=== PATIENT | male | born 1940 | race Caucasian/White ===

== ENCOUNTER 2022-07-25 08:36 | Outpatient (CLI) | payer MEDICARE, BC, SELFPAY ==
[2022-07-25 11:03] LABS: Alanine Aminotransferase* 15 U/L (4-50); Albumin* 4.7 g/dL (3.3-5.0); Alkaline Phosphatase* 80 U/L (40-150); Aspartate Amino Transferase* 22 U/L (12-35); Bilirubin Total* 0.9 mg/dL (0.1-1.5); Blood Urea Nitrogen* 27 mg/dL (7-30); Calcium* 9.9 mg/dL (8.4-10.6); Carbon Dioxide* 30 mmol/L (20-32); Chloride* 102 mmol/L (96-114); Cholesterol* 223 mg/dL (90-199); Creatinine* 1.4 mg/dL (0.5-1.5); Estimated Glomerular Filt Rate 50 ml/min; Glucose* 86 mg/dL (60-115); HDL Cholesterol* 63 mg/dL (>=40); LDL Cholesterol Calculated 146 mg/dL (<100); PSA Screen* 1.57 ng/mL (0.10-4.00); Potassium* 4.6 mmol/L (3.6-5.1); Sodium* 140 mmol/L (135-149); Total Protein* 6.9 g/dL (6.0-8.3); Triglycerides* 69 mg/dL (40-149)
== END 2022-07-25 08:37 | disposition home or self-care (01) ==
PROVIDERS: PCP Internal Medicine; Visit Provider Internal Medicine
DX: Z00.00 Encounter for general adult medical examination without abnormal findings (principal); I10 Essential (primary) hypertension; Z12.5 Encounter for screening for malignant neoplasm of prostate; Z13.6 Encounter for screening for cardiovascular disorders
CPT/HCPCS: 80053; 80061; 84153

== ENCOUNTER 2022-12-05 07:40 | Outpatient (CLI) | payer MEDICARE, BC, SELFPAY ==
--- NOTE | 2022-12-05 08:00 | CRLHL7_ITS ---
For Patients: As a result of the Century Cures Act, medical imaging exams and procedure reports are released immediately into your electronic medical record. You may view this report before your referring provider. If you have questions, please contact your health care provider. INDICATION: Hilar mass, further evaluation with CT recommended TECHNIQUE: CT chest was acquired with IV contrast. 75 cc of Isovue 370 contrast was administered intravenously. COMPARISON: Chest x-ray 11/07/2022 FINDINGS: The heart is normal in size. Mild atherosclerotic calcification of the coronary arteries. There is a mildly prominent sub-carinal lymph node measuring 1.7 x 1.1 cm. AP left precarinal lymph node measures 1.2 x 0.9 cm. No hilar adenopathy. No axillary adenopathy. There is a occlusion of the left lingular bronchus with postobstructive atelectasis/consolidation of the lingula. Most likely secondary to obstructing mass, however is difficult to visualize given the consolidation/atelectasis, however possibly measuring approximately 1.8 cm. Remainder of the lungs are clear. No other suspicious pulmonary mass or nodule. Negative for pleural effusion. Minimal dependent atelectasis on the right. The upper abdomen is unremarkable. No suspicious bone lesion. IMPRESSION: 1. Occlusion of the left lingular bronchus with postobstructive atelectasis/consolidation of the left lingula. Most likely due to obstructing malignant mass. Recommend pulmonary consultation. 2. Mildly prominent mediastinal lymph nodes. Dictated by Rosa Anderson MD @ 12/09/2022 8:30:19 AM Please note that all CT scans at this facility use dose modulation, iterative reconstruction, and/or weight-based dosing when appropriate to reduce radiation dose to as low as reasonably achievable. Dictated by: Rosa Anderson MD @ 12/09/2022 08:31:32 (Electronically Signed)
[2022-12-05 08:14] LABS: Creatinine* 1.2 mg/dL (0.5-1.5); Estimated Glomerular Filt Rate 60 ml/min
== END 2022-12-05 07:41 | disposition home or self-care (01) ==
LOC: CT 07:42
PROVIDERS: PCP Internal Medicine; Visit Provider Internal Medicine
DX: R91.8 Other nonspecific abnormal finding of lung field (principal)
CPT/HCPCS: 36415; 71260; 82565; Q9967

== ENCOUNTER 2023-07-29 08:27 | Outpatient (CLI) | payer MEDICARE, BC, SELFPAY | END 2023-07-29 08:28 | disposition home or self-care (01) | PROVIDERS: PCP Internal Medicine; Visit Provider Internal Medicine | DX: I10 Essential (primary) hypertension (principal); Z13.6 Encounter for screening for cardiovascular disorders; Z12.5 Encounter for screening for malignant neoplasm of prostate | CPT/HCPCS: 80053; 80061; 84153 ==

== ENCOUNTER 2024-01-10 07:03 | Outpatient (CLI) | payer MEDICARE, BC, SELFPAY ==
--- OUTSIDE RECORDS SUMMARY | 2024-01-10 07:06 | XMS_ITS | Clinical Summary ---
Author Name Unknown Organization [facility] Address [address] [place] [address] Care Team Providers Care Shoemaker Apprentice Name Role Phone Unavailable Primary Care Provider Unavailabl e Source Comments Patient records contain information from all sites at [facility]. For routine questions regarding patient records, call [phone] during business hours, M-F 8:00 AM - 5:00 PM Central Time. Record requests for emergency care only can be directed to [phone] at any time.[facility] Allergies Active Allergy Reactions Criticality Noted Date Comments Bleomycin Other (see comments) 06/18/2005 Medications Medication Sig Dispensed Refills Start Date End Date Status atenoloL (TENORMIN) 25 mg tablet Take 0.5 tablets by mouth every evening. 12/06/2011 Active famotidine (PEPCID) 20 mg tablet Take 1 tablet by mouth daily. 03/01/2009 Active lisinopriL (PRINIVIL,ZESTRIL) 40 mg tablet Take 1 tablet by mouth every morning. 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 Overview: Endobronchial Immunizations Name Administration Dates Next Due Influenza (IM) Preservative Free 013,07/11/2012,07/10/2011,2009 Influenza high dose QV(65 ye ars or older) (PF) 07/10/2022,07/20/2021,07/07/2020 Influenza, Seasonal, Injectable 07/13/20 08,08/07/2006,08/02/2005,2003,07/09/2003 Influenza, Unspecified 08/22/2009 PCV13 06/07/2015 PPSV23(Discontinued) 07/25/2001 Tdap 07/25/2022,07/11/2012 influenza high dose (65 year s or older) (PF) 07/01/2019,07/30/2018,07/24/2017,2013 influenza vaccine quad (FLUZONE/FLUARIX) (6 months and older)(PF) 07/05/2016,07/19/2015 Social History Tobacco Use Types Packs/Day Years Used Date Smoking Tobacco: Former Cigarettes 1 30 1 95 - 1981 Smokeless Tobacco: Never Tobacco Cessation:Counseling Given: Not Answered Nutrition Answer Date Recorded Nutrition: EVOO Fat Source Unknown 12/11 Nutrition: Servings of Fruits/Vegetables per Day Not on file 12/11/2022 Dental Answer Date Recorded Dental: Regular Dentist Unknown 12/12/19 23 Sex and Gender Information Value Date Recorded Sex Assigned at Not on file Gender Identity Not on file Sexual Orientation Not on file Last Filed Vital Signs Vital Sign Reading Time Taken Comments Blood Pressure 194/72 01/21/2023 10:52 AM CDT Pulse 57 01/21/2023 10:52 AM CDT Temperature 36.3 ??C (97.4 ??F) 01/21/2023 1 0:52 AM CDT Respiratory Rate 20 12/08/2011 8:15 AM CDT Oxygen Saturation 98% 01/21/2023 10: 52 AM CDT Inhaled Oxygen Concentration - - Weight 78.8 kg (173 lb 11.6 oz) 023 10:52 AM CDT Height 170.4 cm (5' 7.09) 01/21/2023 1 0:52 AM CDT Body Mass Index 27.14 01/21/2023 10:52 AM CDT Plan of Treatment Health Maintenance Due Date Last Done Comments Sodium Level 1940 Potassium Level 12/05/2012 12/06/2011 Pneumococcal vaccine (65+ years) (3 of 3 - PPSV23 or PCV20) 08/02/2015 06/07/2015, 07/25/2001 Zoster Vaccines (2 of 2) 03/04/2023 01/07/2023 Depression Screening (Annual PHQ-2) 09/23/2023 Fall Risk Screen (Annual) 09/23/2023 Creatinine Level (Kidney Function Test) 01/22/2024 01/21/2023, 12/06/2011 DTaP,Tdap,and Td Vaccines (3 - Td or Tdap) 07/25/2032 07/25/2022, 07/11/2012 COVID-19 Vaccine Completed 07/17/2023, , 08/01/2021, Additional history exists Influenza Vaccine Completed 07/17/2023, , 07/20/2021, Additional history exists HPV Vaccines Aged Out No longer eligi ble based on patient's age to complete this topic Medical Devices Implanted Type Area Registered Medical Assistant Device Identifier Shelf Expiration Date Model / Serial / Lot Stent Percuflex 6 X 26 - Pak [id number] Implanted:Qty: 1 on 03/01/2009 Ureteral Stent [employer] Description:Device Manufactu rer - [employer]. Device Status Text - [id number]-1070. Stent Percuflex 7 X 26 - Pak [id number] Implanted:Qty: 1 on 03/11/2009 Ureteral Stent [employer] Description:Device Manufactu rer - [employer]. Device Status Text - [id number]-1072. Stent Percuflex 7 X 24 - Pak [id number] Implanted:Qty: 1 on 04/06/2009 Ureteral Stent [employer] Description:Device Manufactu rer - [employer]. Device Status Text - [id number]-1071. Procedures Procedure Name Priority Date/Time Associated Diagnosis Comments CREATININE, POCT, B Routine 01/21/2023 7 :12 AM CDT POTASSIUM, S/P Routine 12/06/2011 1:44 PM CDT from Last 3 Months or Most Recently Relevant to Health Maintenance Results * (ABNORMAL) Creatinine, POCT (01/21/2023 7:12 AM CDT) Creatinine, POCT, B 1.5(H) 0.7 - 1.4 mg/dL 01/21/2023 7:14 AM CDT PCDT Comment: ----ADDITIONAL INFORMATION---- Performed at the Point of Care Blood 01/21/2023 7:12 AM CDT 01/21/2023 7:14 AM CDT Unknown Provider LAB POCT ORDERABLES - DEVICE Performing Organization Address [facility]/ZIP Co de Phone Number [facility] PER[facility] [address] [place] [address], [facility] PCDT [facility] POC [address] [place] [address] * Potassium (12/06/2011 1:44 PM CDT) Potassium, S 4.7 3.6 - 5.2 MMOL/L [facility] 12/06/2011 1:44 PM CDT 12/06/2011 1:44 PM CDT Bam Richardson M.D. LAB BLOOD ADD-ON Performing Organization Address City/[facility]/ZIP Co de Phone Number [facility] [address] [place] [address], [facility] from Last 3 Months or Most Recently Relevant to Health Maintenance
--- OUTSIDE RECORDS SUMMARY | 2024-01-10 07:06 | XMS_ITS | Referral Summary ---
Author Name Unknown Organization [facility] Address [address] [place] [address] Care Team Providers Care Labor Contract Analyst Name Role Phone Unavailable Primary Care Provider Unavailabl e Source Comments Patient records contain information from all sites at [facility]. For routine questions regarding patient records, call [phone] during business hours, M-F 8:00 AM - 5:00 PM Central Time. Record requests for emergency care only can be directed to [phone] at any time.[facility] Allergies Active Allergy Reactions Criticality Noted Date [...] Smoking Tobacco: Former Cigarettes 1 30 1 24 - 1981 Smokeless Tobacco: Never Tobacco Cessation:Counseling [...] 01/21/2023 10:52 AM CDT Plan of Treatment Not on file Medical Devices Implanted Type Area Automobile Travel Club Counselor Device Identifier Shelf Expiration Date Model / Serial / Lot Stent Percuflex 6 X 26 - Pak [id number] Implanted:Qty: 1 on 03/01/2009 Ureteral Stent [employer] Description:Device Manufactu rer - [employer]. Device Status Text - [id number]-1070. Stent Percuflex 7 X 26 - Pak [id number] Implanted:Qty: 1 on 03/11/2009 Ureteral Stent [employer] Description:Device Manufactu rer - [employer]. Device Status Text - [id number]-1072. Stent Percuflex 7 X 24 - Pak [id number] Implanted:Qty: 1 on 04/06/2009 Ureteral Stent [employer] Description:Device Manufactu rer - [employer]. Device Status Text - [id number]-1071. Procedures [...] POCT ORDERABLES - DEVICE Performing Organization Address City/[facility]/ZIP Co de Phone Number [facility] PERFORMING LABS [address] [place] [address], [facility] PCDT [facility] POC [address] [place] [address] * Potassium (12/06/2011 1:44 PM CDT) Potassium, S 4.7 3.6 - 5.2 MMOL/L [facility] 12/06/2011 1:44 PM CDT 12/06/2011 1:44 PM CDT Bam Richardson M.D. LAB BLOOD ADD-ON Performing Organization Address City/[facility]/ZIP Co de Phone Number [facility] [address] [place] [address], [facility] from Last 3 Months or Most Recently Relevant to Health Maintenance
--- OUTSIDE RECORDS SUMMARY | 2024-01-10 07:06 | XMS_ITS ---
Author Name Unknown Organization [facility] Address [address] [place] [address] Care Team Providers Care Retail Cosmetics Sales Counter Manager Name Role Phone Unavailable Unavailable Unavailable Surgery Details Not on file Complications Check Surgery Details section. Procedure Estimated Blood Loss Check Surgery Details section. Procedure Findings Check Surgery Details section. Procedure Specimens Taken Check Surgery Details section.
--- NOTE | 2024-01-10 07:15 | MR_ITS ---
[facility] [address] [facility] [address] Phone:?[phone] Fax:?[phone] Referring Physician Information: Jose Alvarado M.D. [address] [place] [address] Phone:?[phone] Fax:?[phone] Patient:?Kody Garcia D.O.B:?1940 Sex:?Male Phone:?[phone] [facility] MRN:?[id number] Exam Date:?01/10/2024 EXAM: MRI EXAMINATION OF THE RIGHT SHOULDER CLINICAL INFORMATION: Right shoulder pain. No history of surgery to this area. Possible rotator cuff tear. TECHNICAL INFORMATION: Coronal STIR as well as axial, sagittal and coronal PD and T2-weighted images acquired. No prior studies for comparison. INTERPRETATION: Bones: There is no Hill-Sachs impaction deformity. No other occult fracture or osseous contusion. No other bone marrow edema pattern. Rotator Cuff: Series 8 images 4 through 6 demonstrate a 1.3 cm AP full-thickness tear involving the mid to anterior fibers of the supraspinatus tendon insertion. Torn tendon fibers remain situated lateral to the mid humeral head level. There is no evidence for muscle belly atrophy. The infraspinatus and teres minor tendons appear normally intact. There is a 1 cm craniocaudal segment of moderate to high-grade deep fiber partial tear superior to the mid subscapularis tendon. The bony coracohumeral interval is measuring 5 mm. There is a moderate appearance of subcoracoid bursitis. Mild subscapularis muscle belly atrophy. Coracoacromial arch: There is no discrete subacromial osseous spur. The bony acromiohumeral interval is measuring 5 to 6 mm.. There is no abnormal underlying thickening identified of the coracoacromial ligament. Acromioclavicular joint: There is a mild appearance of AC joint DJD with resultant mild underlying supraspinatus deformity. Biceps tendon: There is rupture of the intra-articular long head biceps tendon. Soft tissue inflammatory changes along the bicipital groove, and this may be more acute or subacute. Glenohumeral joint and labrum: No significant glenohumeral joint effusion. No discrete loose body within the joint. Osteochondral surfaces appear relatively preserved. Mild tearing and fraying involves the superior labrum. No other definite evidence for labral tear. No discrete paralabral cyst is identified. CONCLUSION: 1. There is a moderate-sized full-thickness tear involving the anterior supraspinatus tendon insertion. Torn tendon fibers remain situated lateral to the mid humeral head level. No muscle belly atrophy. 2. There is a small to moderate-sized segment of moderate to high-grade deep fiber partial tear superior to the mid subscapularis tendon. Mild muscle belly atrophy. 3. Mild to moderate narrowing of the coracohumeral interval. Moderate subcoracoid bursitis. 4. Mild AC joint DJD with mild to moderate narrowing of acromiohumeral interval. 5. Ruptured intra-articular long biceps tendon, may be more acute or subacute. 5. No appreciable glenohumeral chondromalacia. Mild tearing and fraying involves the superior labrum. KES Electronically signed on 01/10/2024 11:28:00 AM by Hans Gonzalez M.D.
== END 2024-01-10 07:04 | disposition home or self-care (01) ==
LOC: MRI 07:04
PROVIDERS: PCP Internal Medicine; Visit Provider Orthopaedic Surgery
DX: M25.511 Pain in right shoulder (principal); M75.101 Unspecified rotator cuff tear or rupture of right shoulder, not specified as traumatic; M75.51 Bursitis of right shoulder; M19.011 Primary osteoarthritis, right shoulder
CPT/HCPCS: 73221

== ENCOUNTER 2024-08-03 07:45 | Outpatient (CLI) | payer MEDICARE, BC, SELFPAY ==
--- OUTSIDE RECORDS SUMMARY | 2024-08-05 19:39 | XMS_ITS ---
Author Organization [facility] Address [address] [place] [address] Care Team Providers Care Endocrinology Nurse Name Role Phone Unavailable Unavailable Unavailable Surgery Details Not on file Complications Check Surgery Details section. Procedure Estimated Blood Loss Check Surgery Details section. Procedure Findings Check Surgery Details section. Procedure Specimens Taken Check Surgery Details section.
--- OUTSIDE RECORDS SUMMARY | 2024-08-05 19:39 | XMS_ITS | Referral Summary ---
Author Organization [facility] Address [address] [place] [address] Care Team Providers Care Model Builder Display Name Role Phone Unavailable Primary Care Provider Unavailabl e Source Comments Patient records contain information from all sites at [facility]. For routine questions regarding patient records, call [phone] during business hours, M-F 8:00 AM - 5:00 PM Central Time. Record requests for emergency care only can be directed to [phone] at any time.[facility] Allergies Active Allergy Reactions Criticality Noted Date Comments Bleomycin Other (see comments) 06/18/2005 Medications atenoloL (TENORMIN) 25 mg tablet Take 0.5 tablets by mouth every evening. 12/06/2011 Active famotidine (PEPCID) 20 mg tablet Take 1 tablet by mouth daily. 03/01/2009 Active lisinopriL (PRINIVIL,ZESTR [place]) 40 mg tablet Take 1 tablet by mouth every morning. 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 Overview (01/16/2023): Endobronchial Immunizations Name Administration Dates Next Due Influenza high dose QV(65 ye ars or older) (PF) 07/10/2022,07/20/2021,07/07/2020 Influenza, Seasonal, Injectable 07/13/20 08,08/07/2006,08/02/2005,2003,07/09/2003 Influenza, Unspecified 08/22/2009 PCV13 06/07/2015 PPSV23 07/25/2001 Tdap 07/25/2022,07/11/2012 influenza trivalent high dos e (HD)(PF) 07/01/2019,07/30/2018,07/24/2017,2013 influenza trivalent vaccine (6 months and older)(PF) 06/30/2013,07/11/2012,07/10/2011,2009 influenza vaccine quad (FLUZONE/FLUARIX) (6 months and older)(PF) 07/05/2016,07/19/2015 Social History Tobacco Use Types Packs/Day Years Used Date Smoking Tobacco: Former Cigarettes 1 30 1 1981 Smokeless Tobacco: Never Tobacco Cessation:Counseling Given: Not Answered Dental Answer Date Recorded Dental: Regular Dentist Unknown 12/12/19 23 Sex and Gender Information Value Date Recorded Sex Assigned at Not on file Legal Sex 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 Device Status Text - UROLOGY-1070. Stent Percuflex 7 X 26 - Pak [id number] Implanted:Qty: 1 on 03/11/2009 Ureteral Stent [employer] Description:Device Manufactu rer - [employer]. Device Status Text - UROLOGY-1072. Stent Percuflex 7 X 24 - Pak [id number] Implanted:Qty: 1 on 04/06/2009 Ureteral Stent [employer] Description:Device Manufactu rer - [employer]. Device Status Text - [id number]-1071. Procedures [...] 7:12 AM CDT 01/21/2023 7:14 AM CDT us Unknown Provider LAB POCT ORDERABLES - DEVICE Fi nal Result [facility] PERFORMING LABS [address] PCDT [facility] POC [address] [place] [address] * Potassium (12/06/2011 1:44 PM CDT) Potassium, S 4.7 3.6 - 5.2 MMOL/L [facility] 12/06/2011 1:44 PM CDT 12/06/2011 1:44 PM CDT Bam Richardson M.D. LAB BLOOD ADD-ON Final Result [facility] [address] [place] [address], [facility] from Last 3 Months or Most Recently Relevant to Health Maintenance Insurance [facility]
--- OUTSIDE RECORDS SUMMARY | 2024-08-05 19:39 | XMS_ITS | Clinical Summary ---
Author Organization [facility] Address [address] [place] [address] Care Team Providers Care Lace Inspector Name Role Phone Unavailable Primary Care Provider Unavailabl e Source Comments Patient records contain information from all sites at [facility]. For routine questions regarding patient records, call [phone] during business hours, M-F 8:00 AM - 5:00 PM Central Time. 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 Gender Identity Not on file Sexual Orientation [...] Sodium Level 1940 Potassium Level 12/05/2012 12/06/2011 RSV vaccine - (32-36 weeks) or 60+ years (1 - 1-dose 75+ series) 2014 Pneumococcal vaccine (65+ years) (3 of 3 - PPSV23 or PCV20) 08/02/2015 06/07/2015, 07/25/2001 Zoster Vaccines (2 of 2) 03/04/2023 01/07/2023 Depression Screening (Annual PHQ-2) 09/23/2023 Fall Risk Screen (Annual) 09/23/2023 Creatinine Level (Kidney Function Test) 01/22/2024 01/21/2023, 12/06/2011 COVID-19 Vaccine ( season) 2024 07/17/2023, 07/10/2022, 08/01/2021, Additional history exists Influenza Vaccine (#1) 2024 , 07/10/2022, 07/20/2021, Additional history exists DTaP,Tdap,and Td Vaccines (3 - Td or Tdap) 07/25/2032 07/25/2022, 07/11/2012 HPV Vaccines Aged Out No longer eligi ble based on patient's age to complete this topic IPV Vaccines Aged Out No longer eligi ble based on patient's age to complete this topic Medical Devices Implanted Type Area Nanny Babysitter Device Identifier Shelf Expiration Date Model / Serial / Lot Stent Percuflex 6 X 26 - Pak [id number] Implanted:Qty: 1 on 03/01/2009 Ureteral Stent [employer] Description:Device Manufactu rer - [employer]. Device Status Text - UROLOGY-1070. Stent Percuflex 7 X 26 - Pak [id number] Implanted:Qty: 1 on 03/11/2009 Ureteral Stent [employer] Description:Device Manufactu rer - [employer]. Device Status Text - [id number]-1072. Stent Percuflex 7 X 24 - Pak [id number] Implanted:Qty: 1 on 04/06/2009 Ureteral Stent [employer] Description:Device Manufactu rer - [employer]. Device Status Text - [id number]-1071. Procedures [...] POCT ORDERABLES - DEVICE Fi nal Result Performing Organization Address City/[facility]/ZIP Co de Phone Number [facility] PERFORMING LABS [address] [place], [place] [address] PCDT [facility] POC [address] [place] [address] * Potassium (12/06/2011 1:44 PM CDT) [facility] Potassium, S 4.7 3.6 - 5.2 MMOL/L [facility] 12/06/2011 1:44 PM CDT 12/06/2011 1:44 PM CDT Bam Richardson M.D. LAB BLOOD ADD-ON Final Result Performing Organization Address City/[facility]/ZIP Co de Phone Number [facility] [address] from Last 3 Months or Most Recently Relevant to Health Maintenance Insurance [facility]ICARE [facility]
== END 2024-08-03 07:46 | disposition home or self-care (01) ==
LOC: NFLDREF 08-05 19:37
PROVIDERS: PCP Internal Medicine; Referring Provider Internal Medicine; Visit Provider Internal Medicine
DX: I10 Essential (primary) hypertension (principal); N40.0 Benign prostatic hyperplasia without lower urinary tract symptoms; Z13.220 Encounter for screening for lipoid disorders; Z12.5 Encounter for screening for malignant neoplasm of prostate
CPT/HCPCS: 80053; 80061; G0103

== ENCOUNTER 2025-08-10 08:18 | Outpatient (CLI) | payer MEDICARE, BC, SELFPAY | END 2025-08-10 08:19 | disposition home or self-care (01) | LOC: NFLDREF 08-14 16:42 | PROVIDERS: PCP Internal Medicine; Referring Provider Internal Medicine; Visit Provider Internal Medicine | DX: I10 Essential (primary) hypertension (principal); N40.0 Benign prostatic hyperplasia without lower urinary tract symptoms; Z12.5 Encounter for screening for malignant neoplasm of prostate | CPT/HCPCS: 80053; 80061; G0103 ==